=== PATIENT | female | born 1970 | race Caucasian/White ===

== ENCOUNTER → 2021-04-03 | Outpatient (CLI) | payer BC ==
[~2021-04-03] MED LIST: ELAVIL 10 MG TA10 MG PO; HYDROCHLOROTH12.5 M1 PO; RELPAX40 MG PO
== END ==
LOC: MAMO 08:52
DX: Z12.31 Encounter for screening mammogram for malignant neoplasm of breast (principal)
CPT/HCPCS: 77063; 77067